=== PATIENT | female | born 1960 | race Caucasian/White ===

== ENCOUNTER 2020-03-05 15:43 | Outpatient (CLI) | payer BC, SELFPAY ==
--- NOTE | 2020-03-05 15:58 | XR_ITS ---
WS: [id number] Exam: XR chest 2V* [id number] Date/Time of Exam: 03/05/2020 3:58 PM Reason For Exam: COUGH No priors. Mild infiltrate and/or atelectasis in the right lower lobe. Left lung is clear. Unremarkable cardiome diastinal structures and bony elements. Blunted left costophrenic angle may represent trace pleural e ffusion or pleural thickening. XR/XR chest 2V* [id number] IMPRESSION: 1. Mild infiltrate and/or atelectasis in the right lower lobe. These changes ma y be chronic or this could represent developing pneumonia. Radiographic follow- up in several days might be considered if clinically warranted.
== END 2020-03-05 15:44 | disposition home or self-care (01) ==
PROVIDERS: PCP Nurse Practitioner Family; Visit Provider Nurse Practitioner Family
DX: J06.9 Acute upper respiratory infection, unspecified (principal); R05 Cough; F17.200 Nicotine dependence, unspecified, uncomplicated; J20.9 Acute bronchitis, unspecified; R91.8 Other nonspecific abnormal finding of lung field; J98.11 Atelectasis
CPT/HCPCS: 71046

== ENCOUNTER 2020-03-06 20:52 | Inpatient (IN) | payer BC, SELFPAY ==
[2020-03-06 21:04] VITALS: BP 138/79; PULSE 78; RESP 19; TEMP 36.5; O2SAT 88; BMI 42.9
--- NOTE | 2020-03-06 21:22 | ECG_ITS ---
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 Measurements Intervals [place] Rate: 73 P: 32 AZ: 152 QRS: 112 QRSD: 90 T: 73 QT: 398 QTc: 440 Interpretive Statements SINUS RHYTHM POSSIBLE RIGHT VENTRICULAR HYPERTROPHY [SOME/ALL OF: PROMINENT R IN V1, LATE TRANSITION, RAD, ROBBIE, SSS] POSSIBLE ANTERIOR MYOCARDIAL INFARCTION , OF INDETERMINATE AGE [30 ms Q WAVE IN V3/V4, OR R < 0.2 mV IN V4] No previous ECG available for comparison Electronically Signed On 03-07-2020 9:22:35 MARKETING TECHNOLOGIST by Josselyn Vargas M.D. [id number]
[2020-03-06 21:40] VITALS: PULSE 93; RESP 22; O2SAT 95
[2020-03-06 21:50] VITALS: PULSE 75; RESP 19; O2SAT 95
[2020-03-06] MEDS: albuterol 8 gm MDI 2 PUFF INHALATION (21:50)
--- NOTE | 2020-03-06 21:51 | ED_ITS ---
HPI - SOB/Dyspnea General: Chief Complaint: Shortness of Breath/Dyspnea Stated Complaint: Sob Time Seen by Provider: 03/06/20 21:21 History of Present Illness: HPI Narrative: The patient is a 59-year-old female with past medical history smoking, who is currently being treated for pneumonia by her primary care doctor comes to the ER with increasing shortness of breath over the past few days. Primary ordered a chest x-ray which showed a left-sided pneumonia and started her on azithromycin and Augmentin. She says it has not made a difference yet and the albuterol inhaler is not helping her. She checked her pulse ox at home and she says the highest it got was 88%. Here she is 88% on room air and requiring oxygen to sat in the upper 90s 4 L. Admits shortness of breath, productive cough. Chest x-ray yesterday shows right-sided pneumonia. MD elicited complaint: shortness of breath, cough and pain with inspiration Pertinent past history: pneumonia Onset (ago): day(s) (4) Context: recent illness Severity: moderate Relieving factors: nothing Associated symptoms: Reports cough and fever(s); Deny abdominal pain, chest pain, dizziness, extremity pain, orthopnea, palpitations or polyuria Review of Systems General: Reports: 10 or more systems reviewed and unremarkable except in HPI and below Const: Reports: fever(s) Eyes: Denies: change in vision, blurry vision or eye redness ENMT: Denies: throat pain, swelling of lips/tongue, ear or mastoid pain or nasal congestion Card: Denies: chest pain, palpitations, irregular heart rhythm, edema, dyspnea on exertion or orthopnea Resp: Reports: dyspnea, productive cough and wheezing GI: Denies: abdominal pain, diarrhea or GI cramping : Denies: flank pain, difficulty voiding, urinary frequency or urinary urgency Musc: Denies: neck pain, back pain, extremity pain, joint pain, joint redness, limited range of motion or muscle weakness Skin/Breast: Denies: rash, pruritus, erythema, skin pain or skin tenderness Neuro: Denies: headache(s), numbness in extremities, weakness in extremities, sensory changes, difficulty walking, dizziness, confusion or Slurred speech present Psych: Denies: anxiety or depression Endo: Denies: polyuria All/Imm: Denies: urticaria, throat swelling or tongue swelling PFSH ED PFSH: Medical History (Updated 03/09/20 @ 00:00 by ) Diabetes Hypertension Obesity Postmenopausal bleeding Right ovarian cyst Surgical History H/O umbilical hernia repair Incarcerated umbilical hernia surgery S/P cholecystectomy Family History Father Hypertension Other Diabetes Social History Smoking and tobacco status: current every day smoker cigarettes [ Other cigarette details: [id number] smoking ] Alcohol intake: never Housing: House Physical Exam Const: COMMON NORMALS: no acute distress, average body habitus, patient oriented x3, no limitations, healthy appearing, alert and well nourished GENERAL APPEARANCE: cooperative, comfortable, well kempt and well developed ORIENTATION/CONSCIOUSNESS: Yes awake, Yes oriented to person, Yes oriented to place and Yes oriented to time HENMT: COMMON NORMALS: normocephalic, external ears normal and Normal external nose present HEAD & SCALP: normal to inspection and normocephalic NOSE: Normal external nose present EXTERNAL EAR: Yes external ears normal MOUTH: Normal oral and palatal mucosa present THROAT: posterior oropharynx normal Eye: COMMON NORMALS: Equal, round and reactive pupils present and EOMs intact bilaterally GENERAL EYE: appearance normal, both eyes and all related structures PUPIL: Yes Equal, round and reactive pupils present Neck/C-Spine: COMMON NORMALS: full ROM, no lymphadenopathy, no meningeal signs and no JVD GENERAL: Yes normal visual inspection Lymph: LYMPHATIC: no lymphadenopathy noted Chest: COMMONS NORMALS: normal inspection of the chest and normal palpation of entire chest wall Resp: EFFORT & INSPECTION: Yes able to speak in complete sentences, Yes Actively coughing and Yes uses accessory muscles AUSCULTATION: wheezes (Right middle and lower) and diminished lung sounds on the right OTHER: She has mildly increased work of breathing, mild tachypnea and hypoxic. To me this is mild respiratory distress Cardio: COMMON NORMALS: no JVD, regular rate, regular rhythm, S1 normal heart sound present, S2 normal heart sound present and Peripheral pulses 2+ throughout RATE: regular rate RHYTHM: regular rhythm HEART SOUNDS: S1 normal heart sound present and S2 normal heart sound present PERIPHERAL PULSES: Peripheral pulses 2+ throughout GI: COMMON NORMALS: Normal to inspection, nondistended, normoactive bowel sounds present, Soft to palpation, non-tender and no masses INSPECTION: Yes normal to inspection PALPATION: Yes Soft to palpation : COMMON NORMALS: Yes no CVA tenderness BLADDER/KIDNEY EXAM: Yes no CVA tenderness Back/Pelvis: COMMON NORMALS: no CVA tenderness, thoracic and lumbar spine normal to inspection, no thoracic nor lumbar tenderness and thoraco-lumbar ROM normal Extremity: COMMON NORMALS: normal to inspection, full ROM, capillary refill normal, no joint enlargement and no pedal edema GENERAL: Yes normal exam except as noted Neuro: COMMON NORMALS: patient oriented x3, CN's II-XII intact bilaterally, moves all extremities, no focal motor deficits, no sensory deficits noted and gait normal SENSORIUM/ORIENTATION: Yes alert, Yes oriented to person, Yes oriented to place and Yes oriented to time MENINGEAL SIGNS: Yes no meningeal signs Psych: COMMON NORMALS: mental status grossly normal, Normal thought process present, cooperative, normal affect and speech normal APPEARANCE: Yes well kempt ATTITUDE: Yes calm SPEECH: Yes normal speech THOUGHT PROCESS: Normal thought process present Skin: COMMON NORMALS: no rashes or lesions noted GENERAL SKIN EXAM: no rashes or lesions noted Course Vital Signs: Vital signs: Vital Signs Temperature 97.9 F 03/08/20 12:18 Pulse Rate 73 03/08/20 12:18 Respiratory Rate 17 03/08/20 12:18 Blood Pressure 149/90 03/08/20 12:18 Pulse Oximetry 91 03/08/20 12:18 MDM - SOB/Dyspnea MDM Narrative: Medical decision making narrative: The patient comes to the ER in mild respiratory distress and has a known left-sided pneumonia. She was started on levofloxacin in the ER as well as albuterol with some improvement of her shortness of breath. She is still requiring oxygen. Discussed with Dr. Rueda who accepts inpatient Differential Diagnosis: Shortness of Breath Differential Diagnosis: Likely acute exacerbation of chronic obstructive airways disease, congestive heart failure and community acquired pneumonia Lab Data: Labs: Lab Results 03/06/20 03/06/20 03/06/20 Range/Units 22:20 22:20 22: WBC 12.0 H (4.0-10.0) 10^3/ uL RBC 5.20 (4.1-5.3) 10^6/u L Hgb 14.9 (11.5-15.3) g/dL Hct 47.4 H (37.0-47.0) % MCV 91.2 (81-99) fL MCH 28.7 (28.0-34.0) pg MCHC 31.4 (30.0-36.0) g/dL RDW 14.0 (12.1-15.1) % Plt Count 183 (130-400) 10^3/c mm MPV 11.7 H (7.4-10.4) fL Neut % (Auto) 80.9 % Lymph % (Auto) 12.2 % Whiteside % (Auto) 5.7 % Eos % (Auto) 0.1 % Baso % (Auto) 0.3 % Neut # (Auto) 9.71 H (1.8-7.7) 10^3/u L Lymph # (Auto) 1.5 (0.8-4.8) 10^3/u L Whiteside # (Auto) 0.7 (0.2-0.9) 10^3/u L Eos # (Auto) 0.0 (0.0-0.8) 10^3/u L Baso # (Auto) 0.0 (0.0-0.1) 10^3/u L Nucleated RBC % (a uto) 0 % Nucleated RBCs # 0.0 /100WBC D-Dimer 0.61 H (0-0.59) ug/mIFE U Sodium 138 (136-145) mmol/L Potassium 3.9 (3.5-5.1) mmol/L Chloride 97 L (98-107) mmol/L Carbon Dioxide 30 H (22-29) mmol/L Anion Gap 14.9 (5-19) BUN 11 (6-20) mg/dL Creatinine 0.6 (0.5-0.9) mg/dL GFR Calculation 102.7 (90-130) mL/min Glucose 120 H (65-115) mg/dL Calculated Osmolal ity 287 (285-295) mOsm/k g Calcium 8.9 (8.5-10.5) mg/dL Total Bilirubin 0.3 (0.15-1.2) mg/dL AST 16 (0-32) U/L ALT 19 (0-33) U/L Alkaline Phosphata se 78 (35-105) IU/L Troponin T Baselin e (0-10) ng/L NT-Pro-B Natriuret Pep 1628 H (0-125) pg/mL Total Protein 7.4 (6.6-8.7) g/dL Albumin 4.0 (3.5-5.2) g/dL Globulin 3.4 (1.3-4.6) g/dL Procalcitonin 0.06 (0-0.5) ng/mL SARS-CoV-2 Ag (Rap id) (Negative) 03/06/20 03/06/20 Range/Units 22:20 22:20 WBC (4.0-10.0) 10^3/ uL RBC (4.1-5.3) 10^6/u L Hgb (11.5-15.3) g/dL Hct (37.0-47.0) % MCV (81-99) fL MCH (28.0-34.0) pg MCHC (30.0-36.0) g/dL RDW (12.1-15.1) % Plt Count (130-400) 10^3/c mm MPV (7.4-10.4) fL Neut % (Auto) % Lymph % (Auto) % Whiteside % (Auto) % Eos % (Auto) % Baso % (Auto) % Neut # (Auto) (1.8-7.7) 10^3/u L Lymph # (Auto) (0.8-4.8) 10^3/u L Whiteside # (Auto) (0.2-0.9) 10^3/u L Eos # (Auto) (0.0-0.8) 10^3/u L Baso # (Auto) (0.0-0.1) 10^3/u L Nucleated RBC % (a uto) % Nucleated RBCs # /100WBC D-Dimer (0-0.59) ug/mIFE U Sodium (136-145) mmol/L Potassium (3.5-5.1) mmol/L Chloride (98-107) mmol/L Carbon Dioxide (22-29) mmol/L Anion Gap (5-19) BUN (6-20) mg/dL Creatinine (0.5-0.9) mg/dL GFR Calculation (90-130) mL/min Glucose (65-115) mg/dL Calculated Osmolal ity (285-295) mOsm/k g Calcium (8.5-10.5) mg/dL Total Bilirubin (0.15-1.2) mg/dL AST (0-32) U/L ALT (0-33) U/L Alkaline Phosphata se (35-105) IU/L Troponin T Baselin e 9 (0-10) ng/L NT-Pro-B Natriuret Pep (0-125) pg/mL Total Protein (6.6-8.7) g/dL Albumin (3.5-5.2) g/dL Globulin (1.3-4.6) g/dL Procalcitonin (0-0.5) ng/mL SARS-CoV-2 Ag (Rap id) Negative (Negative) Discharge Plan Discharge Patient Disposition: Admitted As Inpatient Admit Provider: Jose Luis Rueda Clinical Impression: Community acquired pneumonia Condition: Stable Discharge Diet: Usual diet Discharge Activity: Increase activity as tolerated Coding Level of Care Code ED Pinsetter Mechanic Helper for Jose Ramong Fwd Exam Comprehensive
[2020-03-06 22:01] VITALS: PULSE 76
--- NOTE | 2020-03-06 22:15 | PM.HP ---
Providers/Chief Complaint Primary Care Provider: SACHI GOMES Chief Complaint: Sob History of Present Illness Zoe Perea is a 59 year old female who has history of diabetes, hypertension, active smoker presented today with chief complaint of worsening shortness of breath. Patient is stating that her symptoms started last Wednesday, she did not seek any medical help [place] Wednesday, on Wednesday her primary care physician started her on steroids Z-Jf and Augmentin, she only took 2 doses of each, today her shortness of breath was getting worse, she did not notice temperature higher than 100.4, no vomiting, diarrhea but she is endorsing pleuritic chest pain on coughing, her cough is chronic which has gotten worse, she is bringing up white-colored sputum, no blood noticed. She is also wheezing. Does not use oxygen at home. Never had pulmonary function tests. No aggravating or relieving factors. Diagnostics in the ER revealed sepsis, chest x-ray consistent with right lower lobe pneumonia, she was given Levaquin in the ER, Covid antigen negative, D-dimer is pending, mild leukocytosis, BNP 1600, with clinical signs of mild CHF. Her home medications include Azithromycin 250 mg, Medrol pack, Augmentin Trulicity Review of Systems Const: Reports: body aches, change in appetite, fatigue and malaise; Denies: fever(s) or chills Eyes: Denies: change in vision ENMT: Denies: throat pain Card: Reports: chest pain, swelling of feet/ankles, dyspnea on exertion and orthopnea Resp: Reports: dyspnea, productive cough, wheezing and pain on inspiration GI: Denies: abdominal pain : Reports: urinary incontinence; Denies: flank pain Musc: Reports: extremity swelling; Denies: neck pain Skin/Breast: Reports: lesions; Denies: rash Neuro: Denies: headache(s) Psych: Denies: anxiety Endo: Denies: polyuria Malik/Lymph: Denies: easy bruising All/Imm: Denies: urticaria Medications/Allergies Allergies Allergy/AdvReac Type Severity Reaction Status Date / Time No Known Allergies Allergy Verified 03/06/20 21:10 PFSH Acute PFSH: Medical History Diabetes Hypertension Obesity Postmenopausal bleeding Right ovarian cyst Surgical History H/O umbilical hernia repair Incarcerated umbilical hernia surgery S/P cholecystectomy Family History Father Hypertension Other Diabetes Social History Smoking and tobacco status: current every day smoker cigarettes [ Other cigarette details: [id number] smoking ] Alcohol intake: never Substance/Drug Use: never Housing: House Vitals/I&O/Wt Last Vital Signs Temp 97.7 F 03/06/20 21:04 Pulse 76 03/06/20 22:01 Resp 19 H 03/06/20 21:50 BP 138/79 03/06/20 21:04 Pulse Ox 95 03/06/20 21:50 Weight last 48 hrs Weight 113.398 kg Physical Exam Narrative: EXAM NARRATIVE: Middle-age female, appears more than stated age Cushingoid appearance, morbid obesity Was saturating 94% on 3 L nasal cannula no acute respite distress Bilateral breath sounds with expiratory wheezing, prolonged expiratory phase S1, S2 heart rate 94, mild sinus CHF exacerbation lower extremity trace edema Venous stasis dermatitis, hyperemia of toes noted no active sign of cellulitis, no gangrene cyanosis Abdomen soft distended visceral obesity Awake alert oriented x3 GCS 15 No neurological deficit Patient has been experiencing productive cough, she is bringing up white sputum, Appropriate mood and affect No active joint pains Data : 03/06/20 22:20 03/06/20 22:20 A&P Assessment and plan (1) Sepsis with acute hypoxic respiratory failure: Status: Acute (2) Community acquired pneumonia: Status: Acute Qualifiers: Laterality: right Lung location: middle lobe of lung Qualified Code(s): J18.9 - Pneumonia, unspecified organism (3) New onset of congestive heart failure: Status: Acute Additional A&P Information Sepsis with community-acquired pneumonia Sepsis criteria met with tachypnea, leukocytosis, lactic acid is normal, she has received Levaquin in the ER I will start her on ceftriaxone and azithromycin We will request blood culture, urine antigen, She has failed outpatient therapy Acute wheezing Does not carry official diagnosis of COPD, never had any pulmonary function test however she is an active smoker and has expiratory wheezing, chronic cough with underlying morbid obesity, she will also need sleep apnea study For now I would use steroids and [place] Would recommend follow-up with professor of marketing for pulmonary function test Acute hypoxia D-dimer to rule out PE Right lobe pneumonia Mild signs of CHF has expiratory wheezing, does not seem cardiac in nature Home O2 evaluation before discharge New onset CHF Mild signs of fluid overload Trace edema of lower extremities with venous stasis dermatitis and hyperemia of toes without any cellulitis, Raynaud's phenomena not ruled out Will request echo in the morning Follow-up with No active chest pain, EKG showing sinus rhythm right ventricular hypertrophy Type 2 diabetes: I would keep her on consistent carb diet along moderate sliding scale, will request A1c level, patient is stating that her hemoglobin A1c improved from 11-7 Full code Consistent carb diet DVT prophylaxis Lovenox Attestations Medical Necessity Statement*: Sepsis and new onset CHF and anticipating she will need more than 2 midnights in the hospital for management of community-acquired pneumonia and CHF, currently requiring 2 L nasal cannula Coding Level of Care Code Acute Chief Innovation Officer for [facility] Fwd Diagnoses Sepsis with acute hypoxic respiratory failure A41.9; R65.20; J96.01 Community acquired pneumonia J18.9 Laterality: right Lung location: middle lobe of lung New onset of congestive heart failure I50.9
[2020-03-06 23:06] LABS: SARS Covid-2 Antigen Negative (Negative)
[2020-03-06 23:07] LABS: NT Pro B Type Natriuretic Pept 1628 pg/mL (0-125); Procalcitonin 0.06 ng/mL (0-0.5)
[2020-03-06 23:18] LABS: Alanine Aminotransferase 19 U/L (0-33); Alkaline Phosphatase 78 IU/L (35-105); Anion Gap 14.9 (5-19); Aspartate Amino Transferase 16 U/L (0-32); Blood Urea Nitrogen 11 mg/dL (6-20); Calcium 8.9 mg/dL (8.5-10.5); Carbon Dioxide 30 mmol/L (22-29); Chloride 97 mmol/L (98-107); Globulin 3.4 g/dL (1.3-4.6); Glomerular Filtration Rate 102.7 mL/min (90-130); Glucose 120 mg/dL (65-115); Osmolality Calculated 287 mOsm/kg (285-295); Potassium 3.9 mmol/L (3.5-5.1); Sodium 138 mmol/L (136-145); Total Bilirubin 0.3 mg/dL (0.15-1.2); Total Protein 7.4 g/dL (6.6-8.7)
[2020-03-06 23:33] LABS: Basophils % 0.3 %; Eosinophils % 0.1 %; Hematocrit 47.4 % (37.0-47.0); Hemoglobin 14.9 g/dL (11.5-15.3); Lymphocytes # 1.5 10^3/uL (0.8-4.8); Lymphocytes % 12.2 %; Mean Corpuscular HGB Conc 31.4 g/dL (30.0-36.0); Mean Corpuscular Hemoglobin 28.7 pg (28.0-34.0); Mean Corpuscular Volume 91.2 fL (81-99); Mean Platelet Volume 11.7 fL (7.4-10.4); Monocytes # 0.7 10^3/uL (0.2-0.9); Monocytes % 5.7 %; Neutrophils # 9.71 10^3/uL (1.8-7.7); Neutrophils % 80.9 %; Nucleated Red Blood Cells % 0 %; Platelet Count 183 10^3/cmm (130-400)
[2020-03-06] MEDS: levofloxacin-dextrose 5 % 750 MG/150 ML PREMIX 100 MG IV (23:33)
[2020-03-06 23:40] VITALS: BP 138/67; PULSE 83; RESP 19; O2SAT 94
[2020-03-06 23:44] LABS: Troponin(5th) Baseline 9 ng/L (0-10)
[2020-03-06 23:59] LABS: Estmated Average Glucose 123; Hemoglobin A1C 5.9 % (4.0-6.0)
[2020-03-07] VITALS (12 sets, daily range): BP systolic 132–145; BP diastolic 67–86; PULSE 61–83; RESP 18–20; TEMP 36.3–36.6; O2SAT 94–97
--- NOTE | 2020-03-07 00:34 | USCV_ITS ---
Zoe Perea Age: 59 Gender: F : 1960 Exam Date: 03/07/2020 05:48 Ordering Phys: Jose Luis Rueda MD Technologist: Karena Vance Exam Location: [facility] [place] Indication: NEW ONSET CHF BP: / HR: 61 Rhythm: Sinus Technical Quality: Contrast used MEASUREMENTS (Male / Female) Normal Values 2D ECHO LV Diastolic Diameter PLAX 3.8 cm 4.2 - 5.9 / 3.9 - 5.3 cm LV Systolic Diameter PLAX 2.3 cm LV Chamber Size 4.0 cm IVS Diastolic Thickness 1.5 cm 0.6 - 1.0 / 0.6 - 0.9 cm IVS Systolic Thickness 3.1 cm LVPW Diastolic Thickness 1.4 cm 0.6 - 1.0 / 0.6 - 0.9 cm LVPW Systolic Thickness 1.6 cm RV Chamber Size 3.1 cm LVOT Diameter 2.1 cm LV Ejection Fraction 2D Teich 71.5 % LV Ejection Fraction MOD 2C 55.3 % LV Ejection Fraction 2C AL 60.0 % LA Diameter 3.8 cm LA Width 3.1 cm LA Height 3.8 cm RA Width 3.2 cm RA Height 4.0 cm Aorta at Sinotubular Diameter 3.0 cm M-MODE LV Diastolic Diameter MM 4.3 cm 4.2 - 5.9 / 3.9 - 5.3 cm LV Systolic Diameter MM 3.5 cm LV Ejection Fraction MM Teich 41.7 % IVS Diastolic Thickness MM 1.7 cm 0.6 - 1.0 / 0.6 - 0.9 cm IVS Systolic Thickness MM 1.8 cm LVPW Diastolic Thickness MM 1.5 cm 0.6 - 1.0 / 0.6 - 0.9 cm LVPW Systolic Thickness MM 1.6 cm RV Diastolic Diameter MM 2.9 cm Aortic Annulus Diameter 3.9 cm LA Ao Ratio MM 1.2 MV E Point Septal Separation 0.5 cm DOPPLER AV Peak Velocity 117.0 cm/s LVOT Peak Velocity 67.0 cm/s AV Area Cont Eq vti 2.0 cm squared AV Area Cont Eq pk 1.9 cm squared MV Area PHT 3.6 cm squared Mitral E to A Ratio 1.4 MV E' Velocity 46.0 cm/s Mitral E to MV E' Ratio 7.5 Mitral E to LV E' Lateral Ratio 8.2 Mitral E to LV E' Septal Ratio 7.0 TR Peak Velocity 179.7 cm/s TR Peak Gradient 12.9 mmHg TR Mean Velocity 143.9 cm/s TR Mean Gradient 8.9 mmHg TR Velocity Time Integral 66.6 cm TV Peak E Velocity 56.0 cm/s Right Atrial Pressure 3.0 mmHg Pulmonary Artery Systolic Pressu 15.9 mmHg PV Peak Velocity 81.0 cm/s RV Acceleration Time 0.1 s RV Ejection Time 0.4 s RV AcT/ET 0.2 FINDINGS Left Ventricle Normal left ventricular size. LV systolic function is normal with EF of 55 to 60%. No regional wall motion abnormalities are noted. Normal diastolic filling pattern. Right Ventricle The right ventricle is normal in size and function. Right Atrium The right atrium is normal in size. Left Atrium The left atrium is normal in size. Mitral Valve Structurally normal mitral valve without significant stenosis or prolapse. There is no mitral regurgitation. Aortic Valve Grossly normal. No evidence of aortic stenosis or regurgitation is present. Tricuspid Valve Not well-visualized. No significant tricuspid regurgitation or stenosis is seen. Insufficient TR jet to calculate RVSP. Pulmonic Valve Not well-visualized. Pericardium Normal pericardium without effusion. Aorta Normal ascending aorta dimension. CONCLUSIONS Limited quality echocardiogram because of poor ultrasonic windows. Contrast agent used to opacify LV. Systolic function is normal with EF of 55 to 60%. Diastolic function is normal. Limited visualization of valvular structures. However, no significant valvular heart disease is noted. No comparison studies are available. Abilio Josue MD (Electronically Signed) Final Date: 07 March 2020 13:05 S
[2020-03-07 00:43] LABS: Thyroid Stimulating Hormone 3.27 uIU/mL (0.27-4.20)
[2020-03-07 00:52] LABS: D Dimer 0.61 ug/mIFEU (0-0.59)
[2020-03-07] MEDS: enoxaparin 40 mg/0.4 mL Syringe SUBCUT (01:19)
[2020-03-07] MEDS: cefTRIAXone 1,000 MG in sodium chloride 0.9% (plus) 50 ML 100 MG IV (01:19)
[2020-03-07] MEDS: ipratropium-albuterol 3 mL Neb INHALATION ×2 (02:05→20:56)
[2020-03-07 05:42] LABS: Basophils % 0.3 %; Eosinophils % 0.1 %; Hematocrit 44.9 % (37.0-47.0); Hemoglobin 14.1 g/dL (11.5-15.3); Lymphocytes # 2.1 10^3/uL (0.8-4.8); Lymphocytes % 17.7 %; Mean Corpuscular HGB Conc 31.4 g/dL (30.0-36.0); Mean Corpuscular Hemoglobin 28.8 pg (28.0-34.0); Mean Corpuscular Volume 91.8 fL (81-99); Mean Platelet Volume 11.9 fL (7.4-10.4); Monocytes # 0.7 10^3/uL (0.2-0.9); Monocytes % 5.5 %; Neutrophils # 9.06 10^3/uL (1.8-7.7); Neutrophils % 75.7 %; Nucleated Red Blood Cells % 0 %; Platelet Count 167 10^3/cmm (130-400); Red Blood Count 4.89 10^6/uL (4.1-5.3)
[2020-03-07 06:09] LABS: Anion Gap 15.6 (5-19); Blood Urea Nitrogen 11 mg/dL (6-20); Calcium 8.9 mg/dL (8.5-10.5); Carbon Dioxide 31 mmol/L (22-29); Chloride 95 mmol/L (98-107); Creatinine Clr Calc Pharmacy 151.3636; Glomerular Filtration Rate 126.7 mL/min (90-130); Glucose 107 mg/dL (65-115); Osmolality Calculated 286 mOsm/kg (285-295); Potassium 3.6 mmol/L (3.5-5.1); Sodium 138 mmol/L (136-145)
[2020-03-07 07:22] LABS: Glucose Point of Care 87 mg/dL (70-110)
[2020-03-07] MEDS: perflutren protein-a microsphr 0.22 mg/mL SDV 3 mL IV (07:26)
[2020-03-07] MEDS: FUROsemide 20 mg Tablet PO (08:09)
[2020-03-07] MEDS: azithromycin 250 mg Tablet 500 MG PO (08:09)
[2020-03-07] MEDS: predniSONE 20 mg Tablet 40 MG PO (08:09)
[2020-03-07 10:56] LABS: Glucose Point of Care 135 mg/dL (70-110)
[2020-03-07] MEDS: bismuth subsalicylate 240 mL Btl 15 ML PO ×3 (14:32→23:09)
--- NOTE | 2020-03-07 14:58 | PM.PN ---
Subjective Subjective: Interval history: This is a 59-year-old female with history of diabetes, hypertension, tobacco use who presented with worsening shortness of breath. Patient also reported a fever. She reports diarrhea today. Breathing slightly better. Still on oxygen Vitals/I&O/Wt Last Vital Signs Temp 97.7 F 03/07/20 12:00 Pulse 61 03/07/20 12:00 Resp 18 03/07/20 12:00 BP 144/86 03/07/20 12:00 Pulse Ox 61 L 03/07/20 12:00 03/06/20 03/07/20 03/07/20 22:59 06:59 14:59 Intake Total 640 / 640 Balance 640 / 640 Weight last 48 hrs Weight 250 lb Physical Exam Const: COMMON NORMALS: no acute distress and patient oriented x3 Resp: COMMON NORMALS: normal respiratory effort, No retractions and No use of accessory muscles Cardio: COMMON NORMALS: regular rate and regular rhythm RATE: regular rate RHYTHM: regular rhythm GI: COMMON NORMALS: Soft to palpation and non-tender PALPATION: Yes Soft to palpation Neuro: COMMON NORMALS: patient oriented x3 Data : 03/07/20 05:03 03/07/20 05:03 Micro: Microbiology 03/07/20 00:16 Legionella Urinary Antigen - Final Urine,Clean Catch Bacterial Antigens - Final 03/06/20 23:59 Blood Culture - Preliminary Blood SPECIMEN COLLECTED 03/06/20 23:55 Blood Culture - Preliminary Blood SPECIMEN COLLECTED A&P Assessment and plan (1) Community acquired pneumonia: Status: Acute Qualifiers: Laterality: right Lung location: middle lobe of lung Qualified Code(s): J18.9 - Pneumonia, unspecified organism (2) Sepsis with acute hypoxic respiratory failure: Status: Acute (3) Diabetes: Status: Inactive (4) Hypertension: Status: Inactive Additional A&P Information Community-acquired pneumonia -Continue Rocephin and azithromycin -Taper oxygen -Echo normal -duonebs -prednisone Diabetes -Monitor fingerstick blood sugars cover with insulin Hypertension -stable elevated d dimer -check ct chest Attestations Medical Necessity Statement*: Zoe Perea's hospital stay will be less than 2 midnights for pna Coding Level of Care Code Acute Coremaker Experimental for Chg Fwd Exam Expanded Problem Focused Diagnoses Community acquired pneumonia J18.9 Laterality: right Lung location: middle lobe of lung Sepsis with acute hypoxic respiratory failure A41.9; R65.20; J96.01 Diabetes E11.9 Hypertension I10
--- NOTE | 2020-03-07 15:18 | CT_ITS ---
WS: [id number] Exam: CT chest w con* [id number] Date/Time of Exam: 03/07/2020 3:40 PM Reason For Exam: elevated d dimer, hypoxemia DLP: 1008.[address] scans at [facility] use at least one of these dose optimization techniques: automat ed exposure control; mA and/or kV adjustment per patient size (includes targeted exams where dose is matched to clinical indication); or iterative reconstruction. No sign of obvious acute pulmonary embolism. The thoracic aorta is normal in caliber. The airway is p atent. No mediastinal or hilar lymphadenopathy. Mild coronary artery calcifications. No pleural or pe ricardial effusion is seen. No pulmonary mass or nodule. No acute infiltrate. There is a mild plaque atelectasis in the right lower lung zone. Mild cardiac enlargement. Bony structures are intact. CT se ctions the upper abdomen are unremarkable. CT/CT chest w con* [id number] IMPRESSION: 1. No sign of acute PE. 2. No acute infiltrate, mass or lymphadenopathy in the chest. 3. Mild cardiac enlargement.
[2020-03-07] MEDS: iohexol 300 mg/mL 100 mL Btl IV (16:13)
[2020-03-07 17:31] LABS: Glucose Point of Care 146 mg/dL (70-110)
[2020-03-07 21:16] LABS: Glucose Point of Care 157 mg/dL (70-110)
[2020-03-08] VITALS (7 sets, daily range): BP systolic 128–149; BP diastolic 68–90; PULSE 60–73; RESP 17–18; TEMP 36.5–36.6; O2SAT 87–96
[2020-03-08] MEDS: enoxaparin 40 mg/0.4 mL Syringe SUBCUT (02:11)
[2020-03-08] MEDS: cefTRIAXone 1,000 MG in sodium chloride 0.9% (plus) 50 ML 100 MG IV (02:11)
[2020-03-08 06:42] LABS: Glucose Point of Care 102 mg/dL (70-110)
[2020-03-08] MEDS: predniSONE 20 mg Tablet 40 MG PO (08:37)
[2020-03-08] MEDS: azithromycin 250 mg Tablet 500 MG PO (08:37)
[2020-03-08] MEDS: bismuth subsalicylate 240 mL Btl 15 ML PO (08:37)
[2020-03-08] MEDS: ipratropium-albuterol 3 mL Neb INHALATION (10:03)
[2020-03-08 10:06] LABS: Basophils % 0.4 %; Eosinophils % 0.2 %; Hematocrit 46.9 % (37.0-47.0); Hemoglobin 14.5 g/dL (11.5-15.3); Lymphocytes # 2.1 10^3/uL (0.8-4.8); Lymphocytes % 20.7 %; Mean Corpuscular HGB Conc 30.9 g/dL (30.0-36.0); Mean Corpuscular Hemoglobin 28.5 pg (28.0-34.0); Mean Corpuscular Volume 92.3 fL (81-99); Mean Platelet Volume 11.2 fL (7.4-10.4); Monocytes # 0.6 10^3/uL (0.2-0.9); Monocytes % 5.6 %; Neutrophils # 7.18 10^3/uL (1.8-7.7); Neutrophils % 72.4 %; Nucleated Red Blood Cells % 0 %; Platelet Count 178 10^3/cmm (130-400); Red Blood Count 5.08 10^6/uL (4.1-5.3); Red Cell Distribution Width 13.7 % (12.1-15.1); White Blood Count 9.9 10^3/uL (4.0-10.0)
[2020-03-08 11:18] LABS: Alanine Aminotransferase 23 U/L (0-33); Alkaline Phosphatase 67 IU/L (35-105); Anion Gap 11.4 (5-19); Aspartate Amino Transferase 22 U/L (0-32); Blood Urea Nitrogen 13 mg/dL (6-20); Calcium 8.9 mg/dL (8.5-10.5); Carbon Dioxide 34 mmol/L (22-29); Chloride 100 mmol/L (98-107); Glomerular Filtration Rate 85.9 mL/min (90-130); Glucose 141 mg/dL (65-115); Osmolality Calculated 296 mOsm/kg (285-295); Potassium 3.4 mmol/L (3.5-5.1); Sodium 142 mmol/L (136-145); Total Bilirubin 0.3 mg/dL (0.15-1.2)
[2020-03-08 11:40] LABS: Glucose Point of Care 135 mg/dL (70-110)
--- NOTE | 2020-03-08 12:30 | PM.DCS ---
Discharge Providers Date of Admission: 03/06/20 22:27 Date of Discharge: March 08, 2020 Attending Provider at Admission: Jose Luis Rueda MD Attending Provider at Discharge: Deb Loza MD Primary Care Provider: SACHI GOMES Diagnoses at Discharge Discharge Diagnosis (1) Community acquired pneumonia: Status: Acute Qualifiers: Laterality: right Lung location: middle lobe of lung Qualified Code(s): J18.9 - Pneumonia, unspecified organism (2) Sepsis with acute hypoxic respiratory failure: Status: Acute (3) Diabetes: Status: Inactive (4) Hypertension: Status: Inactive Reason for Visit Reason for Visit: Sob Hospital Course Hospital Course Is a 59-year-old female with history of diabetes, hypertension, tobacco use who presented with worsening shortness of breath. It was noted prior to arrival that she was placed on antibiotics by her primary care. She had noted that her symptoms had worsened. She was admitted to the hospital. She was diagnosed with a right lower lobe pneumonia. Her Covid test was negative. She also had a elevation in her BNP. The patient was treated for sepsis. She also was noted to have suspected fluid overload. Patient was diuresed. Given antibiotics. Given steroids. At time of discharge she continued to require oxygen. A D-dimer was noted to be elevated. CT scan was negative for PE. She was discharged home with oral antibiotics. She was also given steroids. Physical Exam Const: COMMON NORMALS: average body habitus and patient oriented x3 Resp: COMMON NORMALS: No retractions and No use of accessory muscles Cardio: COMMON NORMALS: regular rate and regular rhythm RATE: regular rate RHYTHM: regular rhythm GI: COMMON NORMALS: Soft to palpation and non-tender PALPATION: Yes Soft to palpation Extremity: GENERAL: Yes normal exam except as noted Neuro: COMMON NORMALS: patient oriented x3 Discharge Data Data Completed and Pending: Completed Studies During Hospitalization Category Date Time Status CT chest w con* [id number] Routine Cat Scan 03/07/20 15:18 Completed CV echo wo/w cont rast [id number] Routine Ultrasound 03/07/20 00:34 Completed Pending at discharge Category Date Time Status Blood Culture Sta t Lab 03/06/20 23:59 Results Miscellaneous Zee t Routine Lab 03/07/20 18:30 Received US/CV paperwork R outine Ultrasound 03/07/20 Taken Labs from last 24 hours 03/08/20 03/08/20 03/08/20 11:26 09:52 09:52 WBC 9.9 RBC 5.08 Hgb 14.5 Hct 46.9 MCV 92.3 MCH 28.5 MCHC 30.9 RDW 13.7 Plt Count 178 MPV 11.2 H Neut % (Auto) 72.4 Lymph % (Auto) 20.7 [place] % (Auto) 5.6 Eos % (Auto) 0.2 Baso % (Auto) 0.4 Neut # (Auto) 7.18 Lymph # (Auto) 2.1 [place] # (Auto) 0.6 Eos # (Auto) 0.0 Baso # (Auto) 0.0 Nucleated RBC % (a uto) 0 Nucleated RBCs # 0.0 Sodium 142 Potassium 3.4 L Chloride 100 Carbon Dioxide 34 H Anion Gap 11.4 BUN 13 Creatinine 0.7 GFR Calculation 85.9 L Glucose 141 H POC Glucose 135 H Calculated Osmolal ity 296 H Calcium 8.9 Total Bilirubin 0.3 AST 22 ALT 23 Alkaline Phosphata se 67 Total Protein 7.0 Albumin 4.0 Globulin 3.0 Misc Test Referenc e 03/08/20 03/07/20 03/07/20 06:37 20:42 18:30 WBC RBC Hgb Hct MCV MCH MCHC RDW Plt Count MPV Neut % (Auto) Lymph % (Auto) [place] % (Auto) Eos % (Auto) Baso % (Auto) Neut # (Auto) Lymph # (Auto) [place] # (Auto) Eos # (Auto) Baso # (Auto) Nucleated RBC % (a uto) Nucleated RBCs # Sodium Potassium Chloride Carbon Dioxide Anion Gap BUN Creatinine GFR Calculation Glucose POC Glucose 102 157 H Calculated Osmolal ity Calcium Total Bilirubin AST ALT Alkaline Phosphata se Total Protein Albumin Globulin Misc Test Referenc e Pending 03/07/20 17:04 WBC RBC Hgb Hct MCV MCH MCHC RDW Plt Count MPV Neut % (Auto) Lymph % (Auto) [place] % (Auto) Eos % (Auto) Baso % (Auto) Neut # (Auto) Lymph # (Auto) [place] # (Auto) Eos # (Auto) Baso # (Auto) Nucleated RBC % (a uto) Nucleated RBCs # Sodium Potassium Chloride Carbon Dioxide Anion Gap BUN Creatinine GFR Calculation Glucose POC Glucose 146 H Calculated Osmolal ity Calcium Total Bilirubin AST ALT Alkaline Phosphata se Total Protein Albumin Globulin Misc Test Referenc e Vitals: Last Vital Signs Temp 97.9 F 03/08/20 12:18 Pulse 73 03/08/20 12:18 Resp 17 03/08/20 12:18 BP 149/90 03/08/20 12:18 Pulse Ox 91 03/08/20 12:18 Discharge Plan Discharge Patient Disposition: Home Condition: Stable Prescriptions: New azithromycin 250 mg Tablet 500 mg PO DAILY Qty: 3 RF: 0 cefdinir 300 mg capsule 300 mg PO BID 5 Days Qty: 10 RF: 0 prednisone 10 mg tablet See Rx Instructions .ROUTE .COMPLEX Qty: 30 RF: 0 Continued albuterol sulfate 2.5 mg /3 mL (0.083 %) solution for nebulization 2.5 mg inhalation Q4H PRN (Reason: Shortness Of Breath) RF: 0 lisinopril-hydrochlorothiazide 20-12.5 mg tablet 1 tab PO DAILY@08 RF: 0 gabapentin 300 mg capsule 300 mg PO BID@08,20 RF: 0 aspirin 81 mg Tablet,Chewable 81 mg PO DAILY@08 RF: 0 metformin 500 mg tablet extended release 24 hr 500 mg PO DAILY@08 RF: 0 Discontinued azithromycin 250 mg tablet See Rx Instructions .ROUTE .COMPLEX RF: 0 simvastatin 20 mg tablet 20 mg PO DAILY@20 RF: 0 methylprednisolone 4 mg tablets,dose pack 4 mg PO DIRECTED RF: 0 amoxicillin-pot clavulanate 875-125 mg tablet 1 tab PO BID@08,20 RF: 0 Discharge Orders: Discharge Order (Routine); Ordered 03/08/20 Ordered By: Deb Loza Other Ambulatory Orders: DME: Oxygen (Order) Location: None Selected Ordered By: Deb Loza Referrals: SACHI GOMES [facility]ING [employer]TER [Primary Care Provider] - (Please call Lacy to schedule a follow up appointment.) Discharge Diet: Usual diet Discharge Activity: Increase activity as tolerated Patient Instructions: Prednisone (By mouth), Azithromycin (By mouth), Cefdinir (By mouth), Heart Failure (DC), Pneumonia (GEN), CHF Stoplight, Pneumonia Stoplight Discharge Attestations Time Spent in Discharge Care*: less than 30 min Quality Metrics Clinical Quality Measures During this hospital stay, did patient experience: None Coding Level of Care Code Acute Supervisor [employer] for Jose Ramong Fwd Diagnoses Community acquired pneumonia J18.9 Laterality: right Lung location: middle lobe of lung Sepsis with acute hypoxic respiratory failure A41.9; R65.20; J96.01 Diabetes E11.9 Hypertension I10
--- NOTE | 2020-03-11 14:21 | PC.RESP ---
Smoking Cessation information sent to patient.
== END 2020-03-08 14:28 | disposition home or self-care (01) | DRG 871 ==
LOC: ER 22:30 → MEDSURG 03-07 05:31
PROVIDERS: Internal Medicine; Admitting Provider Internal Medicine; Emergency Provider Family Medicine; PCP Nurse Practitioner Family; Visit Provider Internal Medicine
DX: A41.9 Sepsis, unspecified organism (principal); J18.9 Pneumonia, unspecified organism; J96.01 Acute respiratory failure with hypoxia; J44.0 Chronic obstructive pulmonary disease with (acute) lower respiratory infection; Z68.41 Body mass index [BMI] 40.0-44.9, adult; E11.9 Type 2 diabetes mellitus without complications; I11.0 Hypertensive heart disease with heart failure; I50.9 Heart failure, unspecified; F17.210 Nicotine dependence, cigarettes, uncomplicated; E66.9 Obesity, unspecified; N83.201 Unspecified ovarian cyst, right side; I87.8 Other specified disorders of veins; I73.00 Raynaud's syndrome without gangrene; Z79.51 Long term (current) use of inhaled steroids; Z79.82 Long term (current) use of aspirin; Z79.84 Long term (current) use of oral hypoglycemic drugs
CPT/HCPCS: 12345; 36415; 36416; 71260; 80048; 80053; 82962; 83036; 83605; 83880; 84145; 84443; 84484; 85025; 85378; 86403; 87040; 87426; 87449; 93005; 94640; 94760; 96372; 99283; C8929; J0696; J1650; J1815; J1956; J3535; J7512; Q0144; Q9956; Q9967

== ENCOUNTER → 2020-03-15 13:45 | Outpatient (BNVA) | payer BC, SELFPAY | PROVIDERS: PCP Nurse Practitioner Family; Visit Provider Nurse Practitioner Family | DX: Z20.828 Contact with and (suspected) exposure to other viral communicable diseases (principal) | CPT/HCPCS: 87635 ==

== ENCOUNTER 2020-03-20 07:51 | Outpatient (CLI) | payer BC, SELFPAY ==
--- NOTE | 2020-03-20 08:38 | PFTS_ITS ---
Date of Study:03/20/20 Date of Dictation: MECHANICS: Forced vital capacity (FVC) is reduced. Forced expiratory volume in one second (FEV1) is reduced. FEV1/FVC is normal. FLOW VOLUME LOOP: Narrow. LUNG VOLUMES: Not measured DIFFUSING CAPACITY FOR CARBON MONOXIDE: Not measured. INTERPRETATION: The postbronchodilator spirometry is consistent with moderately severe restriction. There is no significant postbronchodilator response. Lung volumes are not measured. Gas exchange (DLCO) is not measured. MTDD
== END 2020-03-20 07:52 | disposition home or self-care (01) ==
PROVIDERS: PCP Nurse Practitioner Family; Visit Provider Nurse Practitioner Family
DX: R40.0 Somnolence (principal); I50.9 Heart failure, unspecified; F17.200 Nicotine dependence, unspecified, uncomplicated
CPT/HCPCS: 94060; J7611

== ENCOUNTER 2020-07-03 20:00 | Outpatient (CLI) | payer BC, SELFPAY | END 2020-07-03 20:01 | disposition home or self-care (01) | LOC: SLEEP 07-04 08:27 | PROVIDERS: PCP Nurse Practitioner Family; Visit Provider Nurse Practitioner Family | DX: G47.33 Obstructive sleep apnea (adult) (pediatric) (principal) | CPT/HCPCS: 95810 ==

== ENCOUNTER → 2020-11-08 10:33 | Outpatient (BNVA) | payer BC, SELFPAY | PROVIDERS: PCP Nurse Practitioner Family; Visit Provider Surgery | DX: Z11.52 Encounter for screening for COVID-19 (principal); R19.5 Other fecal abnormalities | CPT/HCPCS: 87635 ==

== ENCOUNTER 2020-11-14 07:13 | Day surgery (SDC) | payer BC, SELFPAY ==
[2020-11-07 13:42] VITALS: BMI 44.6
--- NOTE | 2020-11-14 07:27 | ANES.PREANE2 ---
Pre-Anesthetic Assessment Pre-Anesthetic Assessment: Height/Weight: Height 1.63 m Weight 117.934 kg Preop Diagnosis: Positive immuochemical test Proposed Procedure: Operation Date: 11/14/20 09:00 Proposed Procedures p Colonoscopy 78130 r19.5(Not Applicable) - Lisandro Medrano MD Familial anesthetic complications: None Was Beta Jamil taken within 24 hours: N/A Was Clonidine taken within 24 hours: N/A Last intake: > 8hrs Social: Social History: Tobacco and No alcohol Exam: Pre-Anes Outpt Exam: alert, oriented x 3, clear to auscultation bilaterally and regular rate & rhythm Airway: Cervical ROM: WNL MP: 4 Dentition: False Additional comments: small mouth opening, large neck circumference Pulmonary: Pulmonary: Sleep apnea (not officially diagnosed) CV/HEM: CV/HEM: HTN Metabolic: Metabolic: DM, Hyperlipidemia and Morbid obesity Anesthetic Plan: ASA status: 3 Anesthesia: MAC Risk of > 500 ml blood loss (7ml/kg in children): No PFSH Anesthesia PFSH: Medical History Diabetes Hypertension Right ovarian cyst Surgical History H/O umbilical hernia repair Incarcerated umbilical hernia surgery History of surgery on arm cyst removal (L) 2010 S/P cholecystectomy Family History Father Hypertension Other Diabetes Social History Smoking and tobacco status: current every day smoker cigarettes [ Other cigarette details: 13-[id number]-nufu smoking ] Alcohol intake: never Housing: House Data Anesthesia Cardiac Studies: Echocardiogram 03/07/20
[2020-11-14 08:19] VITALS: BP 172/94; PULSE 87; RESP 18; TEMP 36.9; O2SAT 96
[2020-11-14] MEDS: sodium chloride 0.9% 1,000 ML 30 ML IV (08:22)
[2020-11-14 08:29] LABS: Glucose Point of Care 111 mg/dL (70-110)
--- NOTE | 2020-11-14 09:59 | P.HP_ITS ---
Same Day Surgery H&P Indication for Procedure/HPI DATE OF PROCEDURE: November 14, 2020 CHIEF COMPLAINT/INDICATIONFOR SURGICAL PROCEDURE: FIT positive PREOP DIAGNOSIS: screening colonoscopy PLANNED PROCEDRUE: Operation Date: 11/14/20 09:00 Proposed Procedures p Colonoscopy 18923 r19.5(Not Applicable) - Lisandro Medrano MD Medications/Allergies* Home Medications Medication Instructions Recorded Confirmed Type aspirin 81 mg PO DAILY@03/07/20 11/14/20 History gabapentin 300 mg PO BID@03/07/20 11/14/20 History lisinopril-hydrochlorothiazide 1 tab PO DAILY@03/07/20 11/14/20 History metformin 500 mg PO DAILY@03/07/20 11/14/20 History celecoxib 100 mg capsule 100 mg PO DAILY 09/03/20 11/14/20 History semaglutide 14 mg tablet 14 mg PO DAILY 09/03/20 11/14/20 History simvastatin 20 mg tablet 20 mg PO DAILY 09/03/20 11/14/20 History dulaglutide [Trulicity] See Rx Instructions .ROUTE .COMPLEX 11/07/20 11/14/20 History Allergies/Adverse Reactions Allergy/AdvReac Type Severity Reaction Status Date / Time No Known Allergies Allergy Verified 11/14/20 08:10 Current Medications: Generic Name Dose Route Start Last Admin Trade Name Freq PRN Reason Stop Dose Admin Sodium Chloride 1,000 mls @ 30 mls/hr 11/14/20 08:15 11/14/20 08:22 Sodium Chloride 0.9% IV 11/15/20 08:14 30 mls/hr .Q24H ANA Administration Pertinent History/Comorbid Conditions* Medical History (Updated 09/03/20 @ 09:57 by Lisandro Medrano MD) Diabetes Hypertension Right ovarian cyst Surgical History (Updated 09/03/20 @ 09:51 by Lisandro Medrano MD) H/O umbilical hernia repair Incarcerated umbilical hernia surgery History of surgery on arm cyst removal (L) 2010 S/P cholecystectomy Family History (Updated 03/06/20 @ 22:17 by Jose Luis Rueda MD) Diabetes Hypertension Father Social History Smoking and tobacco status: current every day smoker cigarettes [ Other cigarette details: 21-qibs-fzbe smoking ] Alcohol intake: never Housing: House Pertinent Exam Findings alert, oriented x 3 and regular rate & rhythm Recommendations Surgery/Procedure today Coding Level of Care Code 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
[2020-11-14 10:21] VITALS: BP 112/73; PULSE 93; RESP 16; TEMP 36.3; O2SAT 95
[2020-11-14 10:33] VITALS: BP 143/56; PULSE 85; RESP 16; O2SAT 94
--- NOTE | 2020-11-14 14:52 | ANE.PACU2 ---
Inpatient post-anesthesia follow up: Airway intact: Yes Vital signs: Temperature 97.3 F Pulse Rate 85 Respiratory Rate 16 Blood Pressure 143/56 Pulse Oximetry 94 Oxygen Delivery Me thod Room Air Oxygen Flow Rate Fraction of Inspir ed Oxygen Hydration adequate: Yes Nausea and vomiting: No Pain level: 1 Mental status: Baseline
== END 2020-11-14 10:50 | disposition home or self-care (01) ==
PROVIDERS: PCP Nurse Practitioner Family; Visit Provider Surgery
PROC: 0DJD8ZZ Inspection of Lower Intestinal Tract, Via Natural or Artificial Opening Endoscopic (ICD-10-PCS; CPT 45378; principal; 2020-11-14 09:00)
DX: Z12.11 Encounter for screening for malignant neoplasm of colon (principal); Z79.82 Long term (current) use of aspirin; E11.9 Type 2 diabetes mellitus without complications; I10 Essential (primary) hypertension; Z82.49 Family history of ischemic heart disease and other diseases of the circulatory system; Z83.3 Family history of diabetes mellitus; F17.210 Nicotine dependence, cigarettes, uncomplicated; K64.8 Other hemorrhoids; G47.30 Sleep apnea, unspecified; E78.5 Hyperlipidemia, unspecified; E66.01 Morbid (severe) obesity due to excess calories; Z68.41 Body mass index [BMI] 40.0-44.9, adult
CPT/HCPCS: 36416; 45378; 82962; 96360; 96361; J2704; J7030

== ENCOUNTER → 2022-10-15 13:05 | Outpatient (BNVA) | payer BC, SELFPAY | PROVIDERS: PCP Nurse Practitioner Family; Visit Provider Podiatrist Foot & Ankle Surgery | DX: M79.673 Pain in unspecified foot (principal); B35.1 Tinea unguium; Q82.8 Other specified congenital malformations of skin; E11.42 Type 2 diabetes mellitus with diabetic polyneuropathy | CPT/HCPCS: 86480 ==

== ENCOUNTER 2023-09-21 10:45 | Day surgery (SDC) | payer OTHER, SELFPAY ==
[2023-09-21] MEDS: sodium chloride 0.9% 1,000 ML 30 ML IV (11:00)
[2023-09-21 11:04] VITALS: BP 171/99; PULSE 94; RESP 18; TEMP 36.3; O2SAT 93
[2023-09-21 11:07] VITALS: BMI 42.2
[2023-09-21 11:12] LABS: Glucose Point of Care 106 mg/dL (70-110)
--- NOTE | 2023-09-21 11:12 | W.PM.OPSUD ---
Surgery/Procedure H&P Update DATE OF PROCEDURE: September 21, 2023 DATE H&P PERFORMED: 09/10/23 H&P UPDATE INFORMATION: I have reviewed H&P completed within last 30 days, I have examined patient prior to procedure, No changes to prior documentation and [place] [facility] [place] indicated PLANNED PROCEDURE: Operation Date: 09/21/23 11:45 Proposed Procedures p EGD 34809, K21.9(Not Applicable) - Anival Manjarrez MD
--- NOTE | 2023-09-21 11:28 | ANES.PREANE2 ---
Pre-Anesthetic Assessment Height/Weight: Height 1.63 m Weight 111.584 kg Temp Pulse Resp BP Pulse Ox O2 Del Method 97.3 F L 94 18 171/99 93 Room Air 09/21/23 11:04 09/21/23 11:04 09/21/23 11:04 09/21/23 11:04 09/21/23 11:04 09/21/23 11:04 Preop Diagnosis: GERD Operation Date: 09/21/23 11:45 Proposed Procedures p EGD [id number], K21.9(Not Applicable) - Anival Manjarrez MD Was Beta Jamil taken within 24 hours: N/A Was Clonidine taken within 24 hours: N/A Last intake: Intake Last Liquid Date 09/20/23 Last Liquid Time 23:30 Last Solid Date 09/20/23 Last Solid Time 18:30 Social Tobacco Exam alert, oriented x 3, clear to auscultation bilaterally and regular rate & rhythm Airway Submandibular: within normal limits Cervical ROM: within normal limits Mallampati: Class II Dentition: false History/ROS No significant history except as noted and No significant complaints CV/HEM Hypertension None reported Hepatic None reported GI Gastroesophageal Reflux Disease Near constant [facility] Metabolic Diabetes Mellitus and Morbid Obesity [facility] None reported Neuropsych None reported Anesthetic Plan ASA status: 3 Anesthesia: Anesthesia Evaluation and MAC Risk of > 500 ml blood loss (7ml/kg in children): No Medications/Allergies Home Medications Medication Instructions Recorded Confirmed Last Taken Type aspirin 81 mg chewable tablet 81 mg PO DAILY@03/07/20 09/17/23 09/20/23 History gabapentin 300 mg capsule 300 mg PO BID@03/07/20 09/17/23 09/20/23 History lisinopril 20 1 tab PO DAILY@03/07/20 09/17/23 09/20/23 History mg-hydrochlorothiazide 12.5 mg tablet metformin 500 mg tablet,extended 500 mg PO DAILY@03/07/20 09/17/23 09/20/23 History release 24 hr celecoxib 100 mg capsule 100 mg PO DAILY 09/03/20 09/21/23 11/13/20 History simvastatin 20 mg tablet 20 mg PO DAILY 09/03/20 09/21/23 09/20/23 History Diabetic Shoes with 3 pairs of #1 ea 07/29/22 09/10/23 Unknown Rx inserts dulaglutide 0.75 mg/0.5 mL 0.75 mg SUBCUT .WEEKLY 09/10/23 09/21/23 Unknown History subcutaneous pen injector (Trulicity) simethicone 80 mg chewable tablet 80 mg PO QID 30 days #120 tabs 09/10/23 09/17/23 09/20/23 Rx Allergies Allergy/AdvReac Type Severity Reaction Status Date / Time No Known Allergies Allergy Verified 09/17/23 09:03 Current Medications Generic Name Dose Route Start Last Admin Trade Name Tangq PRN Reason Stop Dose Admin Sodium Chloride 1,000 mls @ 30 mls/hr 09/21/23 11:00 09/21/23 11:00 Sodium Chloride 0.9% IV 09/22/23 10:59 30 mls/hr .Q24H ANA Administration PFSH Anesthesia Medical History Right ovarian cyst Diabetes Hypertension Surgical History Status post colonoscopy (11/14/20) normal , repeat 10 years History of surgery on arm cyst removal (L) 2010 H/O umbilical hernia repair Incarcerated umbilical hernia surgery S/P cholecystectomy Family History Father Hypertension Other Diabetes Social History Smoking and tobacco/nicotine status: current every day tobacco/nicotine user cigarettes [ Other cigarette details: 12-oktu-tbfn smoking] Alcohol intake: never Substance/Drug Use: never Housing: [place] Data Anesthesia Cardiac Studies: Echocardiogram 03/07/20
[2023-09-21 12:12] VITALS: BP 115/64; PULSE 73; RESP 20; TEMP 36.4; O2SAT 95
[2023-09-21 12:30] VITALS: BP 119/71; PULSE 76; RESP 16; O2SAT 91
--- NOTE | 2023-09-21 12:45 | ANE.PACU2 ---
Inpatient post-anesthesia follow up: Airway intact: Yes Vital signs: Temperature 97.5 F Pulse Rate 76 Respiratory Rate 16 Blood Pressure 119/71 Pulse Oximetry 91 Oxygen Delivery Me thod Room Air Oxygen Flow Rate 4 Fraction of Inspir ed Oxygen Hydration adequate: Yes Nausea and vomiting: No Pain level: 1 Mental status: Baseline
== END 2023-09-21 12:46 | disposition home or self-care (01) ==
PROVIDERS: PCP Nurse Practitioner Family; Visit Provider Surgery
PROC: 0DJ08ZZ Inspection of Upper Intestinal Tract, Via Natural or Artificial Opening Endoscopic (ICD-10-PCS; CPT 43235; principal; 2023-09-21 11:45)
DX: K21.9 Gastro-esophageal reflux disease without esophagitis (principal); K29.80 Duodenitis without bleeding; K29.50 Unspecified chronic gastritis without bleeding; I10 Essential (primary) hypertension; E11.9 Type 2 diabetes mellitus without complications; E66.01 Morbid (severe) obesity due to excess calories; Z79.82 Long term (current) use of aspirin; Z79.84 Long term (current) use of oral hypoglycemic drugs; F17.210 Nicotine dependence, cigarettes, uncomplicated; Z68.41 Body mass index [BMI] 40.0-44.9, adult
CPT/HCPCS: 36416; 43239; 82962; 88305; 88342; J2704; J7030

== ENCOUNTER 2024-02-24 07:34 | Outpatient (CLI) | payer OTHER, SELFPAY ==
--- NOTE | 2024-02-24 08:00 | NM_ITS ---
WS: [id number] NUCLEAR MEDICINE GASTRIC STUDY CLINICAL INFORMATION: EARLY SATIETY,ABDOMINAL BLOATING TECHNIQUE: Following oral ingestion of cooked egg mixed with 1.03 mCi technetium 99m sulfur colloid, anterior images of the stomach were obtained over the course of 90 minutes. Activity curve was perfor med over the course of 90 minutes with linear regression analysis. COMPARISON: None. FINDINGS: Oral ingestion of egg mixture technetium labeled sulfur colloid T1 half emptying 51.6 minutes 50% emptying at 51 minutes 57% emptying at 60 minutes NM/[place] [id number] IMPRESSION: T1 half gastric emptying somewhat rapid but within normal limits. *Normal median T1 half 90 minutes for solid egg meal (45-110 minutes). Delayed gastric retention is defined as 90% retained at 1 hour, 60% at 2 hour s, 30% at 3 hours, and 10% at 4 hours (normal percent gastric retention is 37-9 0% at 1 hour, 30-60% at 2 hours, and 0-10% at 4 hours).
== END 2024-02-24 07:35 | disposition home or self-care (01) ==
PROVIDERS: PCP Nurse Practitioner Family; Visit Provider Nurse Practitioner Family
DX: R14.0 Abdominal distension (gaseous) (principal)
CPT/HCPCS: 78264; A9541